=== PATIENT | male | born 1960 | race Caucasian/White ===

== ENCOUNTER 2020-07-15 04:33 | Inpatient (IN) ==
[2020-07-09 12:01] LABS: Appearance,Urine CLEAR (Clear); Bilirubin,Urine Negative (Negative); Color,Urine STRAW; Culture Indicated,Urine No; Glucose,Urine (UA) Negative (Negative); Ketones,Urine Negative (Negative); Leukocyte Esterase,Urine Negative /ug (Negative); Nitrate,Urine Negative (Negative); Protein,Urine Negative (Negative); Specific Gravity,Urine 1.008 (1.000-1.035); Urine Blood Negative (Negative); Urobilinogen,Urine Negative
[2020-07-09 13:28] LABS: Basophils # (Auto) 0.08 K/mcL (0.00-0.20); Basophils % (Auto) 0.8 % (0.0-2.0); Eosinophils # (Auto) 0.12 K/mcL (0.00-0.70); Eosinophils % (Auto) 1.1 % (0.0-7.0); Hematocrit 49.6 % (41.0-55.0); Hemoglobin 16.2 g/dL (13.5-16.5); Lymphocytes # (Auto) 2.76 K/mcL (1.50-4.80); Lymphocytes % (Auto) 26.3 % (15.0-49.0); Mean Cell Volume 97.6 fL (80.0-100.0); Mean Corpuscular HGB Conc 32.7 g/dL (31.0-36.0); Monocytes # (Auto) 0.96 K/mcL (0.10-0.90); Monocytes % (Auto) 9.2 % (1.0-12.0); Neutrophils % (Auto) 62.6 % (38.0-78.0); Platelet Count 307 K/mcL (140-440); RBC 5.08 M/mcL (4.50-5.90); Red Cell Distribution Width 13.1 % (11.5-14.5); WBC 10.5 K/mcL (4.5-11.0)
[2020-07-09 13:50] LABS: Blood Urea Nitrogen 10 mg/dL (6-20); Calcium 9.7 mg/dL (8.6-10.4); Carbon Dioxide 28 mmol/L (22-30); Chloride 99 mmol/L (96-108); Glomerular Filtration Rate 98; Glucose 85 mg/dL (70-105)
[~2020-07-15 04:33] MED LIST: IPRATROPIUM/ALBUTEROL 3 ML AMPUL.NEB NEB PRN; SCOPOLAMINE 1 PATCH PATCH TOPICAL PRN
[2020-07-15] MEDS ORDERED: ceFAZolin 2 GM in DEXTROSE 5% IN WATER 50 ML IV SCH (06:00)
[2020-07-15] MEDS ORDERED: DEXAMETHASONE 10 MG/ML VIAL ONE (07:39)
[2020-07-15] MEDS ORDERED: KETAMINE 100 MG/ML ML ONE (07:39)
[2020-07-15] MEDS ORDERED: GLYCOPYRROLATE 0.2 MG/ML VIAL IV ONE (07:39)
[2020-07-15] MEDS ORDERED: MIDAZOLAM 2 MG/2 ML VIAL ONE (07:39)
[2020-07-15] MEDS ORDERED: LIDOCAINE HCL/PF 100 MG/5 ML SYRINGE IV ONE (07:39)
[2020-07-15] MEDS ORDERED: PROPOFOL 200 MG/20 ML VIAL IV ONE (07:39)
[2020-07-15] MEDS ORDERED: ROPIVACAINE HCL/PF 20 ML VIAL IJ ONE (07:39)
[2020-07-15] MEDS ORDERED: TRANEXAMIC ACID 1,000 MG/10 ML VIAL IV ONE (07:39)
[2020-07-15] MEDS ORDERED: ONDANSETRON 4 MG/2 ML VIAL ONE (07:39)
[2020-07-15] MEDS ORDERED: GENTAMICIN SULFATE 800 MG/20 ML VIAL IR ONE (08:14)
[2020-07-15] MEDS ORDERED: ONDANSETRON 4 MG/2 ML VIAL IV PRN ×2 (09:37→09:49)
[2020-07-15] MEDS ORDERED: ACETAMINOPHEN 1,000 MG/100 ML BAG IV ONE (09:37)
[2020-07-15] MEDS ORDERED: KETOROLAC 30 MG/ML VIAL IV PRN (09:37)
[2020-07-15] MEDS ORDERED: BENZOCAINE/MENTHOL 1 LOZENGE PO PRN ×2 (09:37→09:49)
[2020-07-15] MEDS ORDERED: PROMETHAZINE 25 MG/ML VIAL IV PRN (09:37)
[2020-07-15] MEDS ORDERED: fentaNYL 100 MCG/2 ML VIAL IV PRN (09:37)
[2020-07-15] MEDS ORDERED: METHOCARBAMOL 1,000 MG/10 ML VIAL IV PRN (09:37)
[2020-07-15] MEDS ORDERED: MEPERIDINE 25 MG/ML SYRINGE IV PRN (09:37)
[2020-07-15] MEDS ORDERED: IPRATROPIUM/ALBUTEROL 3 ML AMPUL.NEB NEB PRN (09:37)
[2020-07-15] MEDS ORDERED: LACTATED RINGERS 1,000 ML IV SCH (09:45)
[2020-07-15] MEDS ORDERED: POLYETHYLENE GLYCOL 3350 17 GM PACKET PO PRN (09:49)
[2020-07-15] MEDS ORDERED: BISACODYL 10 MG SUPP.RECT PR PRN (09:49)
[2020-07-15] MEDS ORDERED: FLEETS ADULT ENEMA PR PRN (09:49)
[2020-07-15] MEDS ORDERED: TEMAZEPAM 15 MG CAPSULE PO PRN (09:49)
[2020-07-15] MEDS ORDERED: MAGNESIUM HYDROXIDE 30 ML ORAL.SUSP PO PRN (09:49)
[2020-07-15] MEDS ORDERED: BUPIVACAINE 0.5% 50 ML VIAL IJ ONE (09:51)
[2020-07-15] MEDS ORDERED: morphine 2 MG/ML VIAL IV PRN (09:55)
--- NOTE | 2020-07-15 09:59 | Brief Operative Note ---
Brief Operative Note Date of procedure: 07/15/20 Pre-op diagnosis: djd left ankle Post-op diagnosis: same Procedure: Left knee replacement Grafts/Implants: Yes Findings: DJD Complications: none Surgeon: Adam Gaviria Estimated blood loss (cc): 10 Tourniquet Time (Minutes): 80 Specimens Removed/Pathology: none sent Condition: stable Disposition: PACU
--- NOTE | 2020-07-15 10:38 | Operative Note ---
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 PROCEDURE: Left total ankle replacement using an Inbone system. SURGEON: Adam Gaviria M.D. ONLINE CONTENT COORDINATOR: Frederick Hanley PA-C. The PA's assistance was required for the safe and efficient completion of the entire case. This provider's expertise and technical skill were required throughout the case. The PA assisted with preoperative coordination, intraoperative retraction, wound closure, dressing and splint application, as well as postoperative documentation and care coordination. ANESTHESIA: General, done by Georges Mckeon M.D. TOURNIQUET TIME: 80 minutes. ESTIMATED BLOOD LOSS: 10 mL. SUMMARY OF PROCEDURE: General anesthesia was obtained. The left leg was prepped and draped. A curvilinear incision was made over the anterior aspect of the ankle in line with the angiosome in this area. This was taken down sharply to the retinaculum and tendon layer. The tibialis anterior was identified and preserved. A full-thickness flap was developed and mobilized laterally. The tibialis anterior sheath was opened. The tibialis anterior was retracted medially for the case. The deep fascia was opened over the ankle and talus. The ankle and talus were exposed subperiosteally. We then approached the tibia. The cutting guide model was placed on the tibia and position confirmed to be satisfactory after pinning by using the mini C-arm. The cutting guide was placed for a size 3 tibia. The dorsal and medial and lateral cuts were made. The corner chisels were then used to help loosen the bone. Ultimately, we took the top two-thirds or so of the bone out at this point, using an osteotome. We then addressed the talus. The cutting guide was placed on the talus and position confirmed to be satisfactory. The guide was pinned in place. The talar cut was made. We next addressed the intramedullary stem cut. The guide was placed. The position was confirmed to be satisfactory under C-arm. The C-arm bracket was next placed. The center of the bracket was marked on the calcaneus. An incision was made over this with a knife and then opened with a hemostat. The 6 mm guide was next placed using the bracket. The intramedullary canal was opened over the calcaneus, talus, and tibia. We then used instrumentation through the front. The 14 mm size reamer head was placed onto the stem. I reamed about 5 cm up under image control with a 14 mm reamer. The very distal aspect of the tibial canal was then opened with a 16 mm reamer. The three stems and the baseplate were next advanced after sizing. The tibia sized to a 3 long. The poly trial was then used and the talar cutting guide was placed on the talus. The position was optimized and then the talar cutting guide was pinned in place. The anterior peg holes were made. A pin hole was placed in the center of the cutting guide and then the 10 mm hole for the stem was drilled. The talus sized to a 3. The gutters were cleaned with a rongeur. The talar component was next impacted in. Finally, we did trial reductions using an 8 mm and 10 mm poly. The 10 mm gave the best combination of both full range of motion with stability in dorsiflexion and plantarflexion. The 10 mm poly was inserted using the guide system. The tourniquet was let down. All bleeding points were coagulated. Final x-rays confirmed good position of the prosthesis. The retinacular layer was closed with running 2-0 Vicryl. The subcutaneous tissue was closed with buried 2-0 Monocryl. The skin was hand sewn with 2-0 and 3-0 nylon. A sterile compressive dressing was applied, followed by a splint. The sponge and needle count was correct. The patient tolerated the procedure well and was taken to the recovery room in stable condition. TJF:eusebia Job ID: [id number] Doc ID: [id number] Adam Gaviria MD
[2020-07-15] MEDS: 0.9 % SODIUM CHLORIDE 1,000 ML IV SCH ×3 (12:18→21:42)
--- NOTE | 2020-07-15 12:36 | XRay Report ---
CLINICAL INFORMATION: left ankle replacement COMPARISON: None. FINDINGS: Ankle prostheses is anatomically aligned. Talocalcaneal joint and joints of the midfoot are unremarkable. No osseous abnormalities. Plaster casting material obscures bone detail. Diffuse soft tissue swelling noted. IMPRESSION: Total hip prostheses in anatomic alignment. Interpreted and Authenticated by: Marshall Ramos 07/15/20
[2020-07-15] MEDS: 0.9 % SODIUM CHLORIDE 10 ML SYRINGE IV SCH ×2 (14:08→21:37)
[2020-07-15] MEDS: oxyCODONE/APAP 5/325MG TABLET PO PRN (14:09)
[2020-07-15] MEDS: ceFAZolin 1 GM VIAL IV SCH ×2 (15:35→23:00)
[2020-07-15] MEDS ORDERED: SENNOSIDES 1 TABLET PO SCH (21:00)
[2020-07-15] MEDS: oxyCODONE 10 MG TAB.ER.12H PO SCH (21:36)
[2020-07-15] MEDS: ASPIRIN 81 MG TAB.CHEW PO SCH (21:37)
[2020-07-15] MEDS: DOCUSATE SODIUM 100 MG CAPSULE PO SCH (21:37)
[2020-07-16] MEDS: oxyCODONE/APAP 5/325MG TABLET PO PRN ×2 (00:10→05:11)
[2020-07-16] MEDS: 0.9 % SODIUM CHLORIDE 1,000 ML IV SCH (04:07)
[2020-07-16] MEDS: 0.9 % SODIUM CHLORIDE 10 ML SYRINGE IV SCH ×2 (05:12→12:23)
[2020-07-16] MEDS: ASPIRIN 81 MG TAB.CHEW PO SCH (08:28)
[2020-07-16] MEDS: oxyCODONE 10 MG TAB.ER.12H PO SCH (08:28)
[2020-07-16] MEDS: DOCUSATE SODIUM 100 MG CAPSULE PO SCH (08:28)
--- NOTE | 2020-07-16 10:55 | Discharge Plan ---
Discharge Plan Patient/Caregiver Discharge Instructions Activity: non-weight bearing Diet: Regular Diet Prescriptions: No Action No Known Home Meds RF: 0 Follow Up Plan Patient Disposition: Home, Self-Care Rehab Potential: Good I certify that the patient requires SNF services: No Overall status at discharge: patient is not back to baseline
[2020-07-16] MEDS ORDERED: MORPHINE SULFATE 15 MG PO SCH (11:00)
[2020-07-16] MEDS ORDERED: morphine 15 MG TABLET PO ONE (11:09)
--- NOTE | 2020-07-16 11:31 | Discharge Plan ---
Discharge Plan Patient/Caregiver Discharge Instructions Activity: non-weight bearing Diet: Regular Diet Prescriptions: New morphine 15 mg Tablet 15 - 30 mg PO Q4H PRN (Reason: Pain) Qty: 40 RF: 0 Other Ambulatory Orders: Walker (ONCE) Location: None Selected Ordered By: Adam Gaviria Follow Up Plan Patient Disposition: Home, Self-Care Rehab Potential: Good I certify that the patient requires SNF services: No Overall status at discharge: patient is not back to baseline Discharge Orders: Discharge Order (Routine); Ordered 07/16/20 Ordered By: Adam Gaviria
== END 2020-07-16 13:40 | disposition home or self-care (01) | DRG 469 ==
LOC: MEDSUR 04:33
PROVIDERS: ADMIT Orthopaedic Surgery Foot and Ankle Surgery; ATTEND Orthopaedic Surgery Foot and Ankle Surgery